=== PATIENT | male | born 2000 | race African-American/Black ===

== ENCOUNTER 2020-12-27 22:38 | Emergency (ER) | payer MEDICAID ==
[~2020-12-27] VITALS: Ht 170.2 cm; Wt 58.6 kg
[2020-12-28] VITALS: BP 115/67
--- NOTE | 2020-12-28 00:02 | NUR ---
Pt VS reassessed from triage and then back to lobby while awaiting a room assignment.
[2020-12-28 00:29] LABS: BASOPHILS % (AUTO) 1 % (0-1); EOSINOPHILS % (AUTO) 1 % (1-7); LYMPHOCYTES % (AUTO) 28 % (22-44); MEAN CORPUSCULAR HEMOGLOBIN 29.9 pg (27.5-34.5); MEAN CORPUSCULAR HGB CONC 33.3 g/dL (33.2-36.2); MEAN PLATELET VOLUME 7.4 fL (7.4-10.4); MONOCYTES % (AUTO) 8 % (2-9); NEUTROPHILS % (AUTO) 61 % (42-75); PLATELET COUNT 264 x10^3/uL (130-400); RED CELL DISTRIBUTION WIDTH 14.1 % (9.4-14.8)
--- NOTE | 2020-12-28 00:29 | NUR ---
pt stated for a few years he has this adominal discomfort, pts routine where pt wake up in the morning have a bowel movement and it is usually oily, pt eats some food but feels extremely full and bloated after for most of the day, pt reports no nausea, no vomitting, no abdominal pain. pt stated that his mom and grandfather have partially developed large intestines.
[2020-12-28 00:34] LABS: MD NO
[2020-12-28 00:40] LABS: ALANINE AMINOTRANSFERASE 24 U/L (12-78); ALBUMIN 4.4 g/dL (3.4-5.0); ANION GAP 5 mmol/L (5-15); CALCIUM 9.1 mg/dL (8.5-10.1); CHLORIDE 109 mmol/L (98-107); CREATININE 1.02 mg/dL (0.7-1.3)
[2020-12-28 00:42] LABS: ALKALINE PHOSPHATASE 71 U/L (45-117); BILIRUBIN,TOTAL 0.7 mg/dL (0.2-1.0); TOTAL PROTEIN 7.6 g/dL (6.4-8.2)
== END 2020-12-28 02:00 | disposition home or self-care (01) ==
LOC: ED 23:08
DX: R10.13 Epigastric pain (principal); F17.200 Nicotine dependence, unspecified, uncomplicated
CPT/HCPCS: 36415; 74021; 80053; 83690; 85025; 99284

== ENCOUNTER 2021-03-09 04:37 | Emergency (ER) | payer OTHER, MEDICAID ==
[~2021-03-09] VITALS: Ht 170.2 cm; Wt 60.5 kg
[2021-03-09 04:40] VITALS: BP 119/64
--- NOTE | 2021-03-09 07:05 | NUR ---
Report to [facility]
--- NOTE | 2021-03-09 08:00 | NUR ---
TASK RN: Pt has own knee immobilizer at home. Patient/Caregiver given discharge instructions and they have confirmed that they understand the instructions. Patient ambulatory with steady gait. NAD, all questions answered appropriately, denies additional needs at this time. No personal belongings left in room after discharge.
== END 2021-03-09 08:01 | disposition home or self-care (01) ==
LOC: ED 06:36
DX: M25.562 Pain in left knee (principal); J45.909 Unspecified asthma, uncomplicated
CPT/HCPCS: 99281

== ENCOUNTER 2021-05-11 00:42 | Emergency (ER) | payer OTHER, MEDICAID ==
[~2021-05-11] VITALS: Ht 167.6 cm; Wt 61.9 kg
[2021-05-11 00:53] VITALS: BP 133/79
--- NOTE | 2021-05-11 01:48 | NUR ---
Report from [facility]
--- NOTE | 2021-05-11 01:48 | NUR ---
REPORT GIVEN TO ARACELIS DE
== END 2021-05-11 02:31 | disposition home or self-care (01) ==
LOC: ED 02:17
DX: B34.9 Viral infection, unspecified (principal); J06.9 Acute upper respiratory infection, unspecified; Z20.822 Contact with and (suspected) exposure to COVID-19; J45.909 Unspecified asthma, uncomplicated
CPT/HCPCS: 71045; 99284; U0003; U0005